=== PATIENT | female | born 1955 | race Caucasian/White ===

== ENCOUNTER → 2018-06-17 | Outpatient (CLI) | payer BC, OTHER ==
[~2018-06-17] MED LIST: ASPI325; DEXA4; DILANTIN; FURO40; FURO80; GLIM2; GLIM4; HYDACE5 PO; LEVE500; LEVSOD175; LEVSOD200; MAGOXI400; METF500; METF850; PHENA200 PO; PHENO60; PHENY100ER; POTCHL20ER; ROSU10TA; SULTRIDS PO; WARF5; YOHI5.4; [UNRECOGNIZED DRUG - REMARK]
[2018-06-17 16:02] LABS: Creatinine, Urine Random 80.3 mg/dL (27.00-270.00); Protein, Urine Random 22.3 mg/dL (0.0-11.9)
== END ==
LOC: LAB 14:33 → LAB SHORT 14:33
PROVIDERS: Internal Medicine
DX: N19 Unspecified kidney failure (principal)
CPT/HCPCS: 82570; 84156

== ENCOUNTER → 2020-05-03 | Outpatient (CLI) | payer BC, OTHER ==
[2020-05-03 20:00] LABS: Free Thyroxine 1.42 ng/dL (0.70-1.60)
[2020-05-03 20:02] LABS: Thyroid Stimulating Hormone 0.057 uIU/mL (0.360-4.800)
== END | disposition home or self-care (01) ==
LOC: LAB 17:00
PROVIDERS: Hospitalist
DX: E03.9 Hypothyroidism, unspecified (principal)
CPT/HCPCS: 84439; 84443

== ENCOUNTER → 2021-08-02 | Outpatient (CLI) | payer BC, MEDICARE, OTHER | END | disposition home or self-care (01) | LOC: LAB SHORT 12:09 | DX: D04.62 Carcinoma in situ of skin of left upper limb, including shoulder (principal) | CPT/HCPCS: 88305 ==

== ENCOUNTER 2023-09-21 02:57 | Inpatient (IN) | payer BC, MEDICARE, OTHER ==
[~2023-09-21] VITALS: Ht 172.7 cm; Wt 115.1 kg
[2023-09-21 03:43] LABS: Hematocrit 39.7 % (33.0-51.0); Hemoglobin 13.1 g/dL (11.5-16.0); Mean Corpuscular HGB 30.3 pg (26.0-34.0); Mean Corpuscular Volume 92 fL (80-100); Mean Platelet Volume 11.3 fL (9.1-12.4); Platelet Count 90 K/mm3 (150-400); RDW Coefficient Variation 12.7 % (11.7-14.2); RDW Standard Deviation 42.9 fL (35.1-46.3); Red Blood Cell Count 4.32 M/mm3 (3.80-5.20); White Blood Cell Count 9.64 K/mm3 (4.00-11.30)
[2023-09-21] MEDS ORDERED: Lactated Ringer's 1,000 ML IV ONE ×2 (03:45→05:05)
[2023-09-21 04:13] LABS: Albumin, Blood 3.3 g/dL (3.4-5.0); Bilirubin, Total 4.3 mg/dL (0.1-1.0); Bun/Creatinine Ratio 21.7 (12.0-20.0); Calcium, Blood 9.2 mg/dL (8.5-10.1); Creatinine, Blood 0.97 mg/dL (0.40-1.00); Globulin, Blood 3.2 g/dL (2.2-4.0); Potassium, Blood 4.8 mmol/L (3.5-5.5); Total Protein, Blood 6.5 g/dL (6.4-8.2)
[2023-09-21 04:24] LABS: BAND PERCENT MAN 27 % (0-8); BASOPHILS PERCENT MAN 0 % (0-2); EOSINOPHILS PERCENT MAN 0 % (0-6); LYMPHOCYTES ABSOLUTE MAN 0.57 K/mm3 (0.84-5.20); LYMPHOCYTES PERCENT MAN 6 % (21-46); MONOCYTES PERCENT MAN 0 % (4-13); NEUTROPHILS ABSOLUTE MAN 9.06 K/mm3 (1.96-9.15); SEG NEUTROPHILS PERCENT MAN 67 % (41-73); TOTAL CELLS COUNTED 100
[2023-09-21] MEDS ORDERED: CefTRIAXone Sodium 1,000 MG in NS 100 ML IV ONE (05:00)
[2023-09-21] MEDS ORDERED: Ondansetron HCl 2 MG / ML 2ML Vial IV PRN (06:25)
[2023-09-21] MEDS ORDERED: NS 1,000 ML IV SCH (06:25)
[2023-09-21] MEDS ORDERED: FentaNYL Citrate 50 MCG/ML 2 ML Injection IV PRN (06:25)
[2023-09-21] MEDS ORDERED: levETIRAcetam 1,500 MG in NS 100 ML IV SCH (06:55)
[2023-09-21] MEDS ORDERED: Pantoprazole Sodium 40 MG Injection IV SCH (07:10)
[2023-09-21 07:14] LABS: Source, Urine Clean Catch
[2023-09-21] MEDS ORDERED: Insulin Human Lispro 100 Units/ML 3ML Syringe SC SCH (07:30)
[2023-09-21 07:31] LABS: Appearance, Urine Clear (Clear); Bilirubin, Urine Neg (Neg); Blood, Urine Neg (Neg); Color, Urine Yellow (P-Yellow); Glucose Qualitative, Urine 4+ (Neg); Ketones, Urine 2+ (Neg); Leukocyte Esterase, Urine Neg (Neg); Nitrite, Urine Neg (Neg); Protein, Urine Neg (Neg); Specific Gravity, Urine 1.005 (1.003-1.022); Urobilinogen, Urine NORM (Normal)
[2023-09-21 08:13] LABS: Influenza A, PCR NEGATIVE (NEGATIVE); Influenza B, PCR NEGATIVE (NEGATIVE); Resp Syncytial Virus, PCR NEGATIVE (NEGATIVE); SARS-Cov-2 (COVID-19) PCR, MMC NEGATIVE (NEGATIVE)
[2023-09-21] MEDS ORDERED: Enoxaparin 40 MG/0.4 ML SYR SC SCH (09:00)
[2023-09-21] MEDS ORDERED: Azithromycin 500 MG in NS 250 ML IV SCH (09:00)
[2023-09-21 11:11] LABS: Base Excess Venous 2.2 mmol/L; Bicarbonate Venous 24.8 mmol/L (24.0-30.0); PCO2 Venous 54.3 mmHg (38-42); pH Blood Venous 7.33 (7.34-7.37)
[2023-09-21 11:34] LABS: International Normalized Ratio 1.05; Prothrombin Time Results 11.2 Sec (9.7-11.5)
[2023-09-21] MEDS ORDERED: Carvedilol12.5 MG PO (11:46)
[2023-09-21] MEDS ORDERED: GLIP10 PO (11:47)
[2023-09-21] MEDS ORDERED: GABA300 PO (11:47)
[2023-09-21] MEDS ORDERED: Isosorbide Mono30 MG PO (11:48)
[2023-09-21] MEDS ORDERED: HYDR10 PO (11:48)
[2023-09-21] MEDS ORDERED: LEVE500 PO (11:49)
[2023-09-21] MEDS ORDERED: JARDIANCE25 MG PO (11:49)
[2023-09-21] MEDS ORDERED: LIOT25 PO (11:50)
[2023-09-21] MEDS ORDERED: LEVSOD150 PO (11:50)
[2023-09-21] MEDS ORDERED: Crestor20 MG PO (11:51)
[2023-09-21] MEDS ORDERED: ONDA4ODT MM (11:51)
--- NOTE | 2023-09-21 11:53 | NUR ---
MED.REC RECORDS REQUESTED FROM [employer] D/T STATED MEDCIATIONS NOT MATCHING WITH FILL HISTORY. RECORDS RECEIVED VIA FAX. MEDICATIONS RECONCILATION COMPLETED OFF OF [employer] RECORD. CARE ONGOING.
[2023-09-21 13:01] VITALS: BP 102/59
[2023-09-21] MEDS ORDERED: MIRALAX17 GM PO (13:34)
[2023-09-21] MEDS ORDERED: ASCO500 PO (13:37)
[2023-09-21] MEDS ORDERED: ASPIR 8181 M1 PO (13:38)
[2023-09-21] MEDS ORDERED: CENTRUM WOMEN1 EAC2 PO (13:39)
--- NOTE | 2023-09-21 15:18 | NUR ---
ASSUMPTION OF CARE NOTE: RECEIVED REPORTS FROM KO NASH REGARDING PATIENT CONDITION. ASSUME CARE OF PATIENT AT 1518. PATIENT APPEARS TO BE COMFRORTABLY LAYING c HOB ELEVATED. PATIENT ON 2L O2 VIA NC. PATIENT DENIES CP/PRESSURE, SOB, N/V AND DIZZINESS. PATIENT ON TELE, SR HR IN THE HIGH 60'S BPM. PATIENT A/O, ANSWER TO QUESTIONS APPROPRIATELY AND ABLE TO MAKE NEEDS KNOWN. PATIENT SPOUSE AT BEDSIDE. CALL LIGHT IN REACH.
--- NOTE | 2023-09-21 15:25 | NUR ---
PT ARRIVED TO ROOM AT 1245 VIA CART WITH AT SIDE. PT SETTLED INTO ROOM AOX3 AND COOPERATIVE OF CARE. PT WAS ABLE TO DO A STAND PIVOT WITH GAITBELT TO BEDSIDE COMMODE WITH AID. PT CURRENTLY RESTING CALL LIGHT WITHIN REACH. REPORT WAS GIVEN TO MUKESH CONNELL TO TAKE OVER CARE AT 1520.
[2023-09-21 15:55] VITALS: BP 114/78
[2023-09-21 16:12] LABS: Base Excess Venous 2.8 mmol/L; Bicarbonate Venous 25.3 mmol/L (24.0-30.0); PCO2 Venous 58.5 mmHg (38-42); pH Blood Venous 7.31 (7.34-7.37)
[2023-09-21] MEDS ORDERED: Carvedilol 6.25 MG Tab PO SCH (17:00)
--- NOTE | 2023-09-21 17:29 | NUR ---
NOTE: PATIENT LEFT THE ROOM AT THIS TIME TO IMAGING.
--- NOTE | 2023-09-21 18:32 | NUR ---
ADDITONAL NOTE: PATIENT PLACED ON RA AT 1615 c SPO2 AT 98%. PATIENT DENIES SOB AND GENERALIZED PAIN. PATIENT ON HEART HEALTHY DIET c CBG ACHS. PATIENT BS 91 BEFORE DINNER, NO INSULIN COVERAGE. PATIENT HAS GOOD APPETITE, CONTINENCE OF BLADDER AND USES [facility] c 1 ASSIST/FWW. PATIENT HAD MRI DONE THIS PM, AWAITING FOR RESULT. PATIENT APPEARS TO BE RESTING COMFORTABLY IN BED, SPOUSE AT BEDSIDE c CALL LIGHT IN REACH. PIV TO R WRIST INFUSING NS AT 75 MLS/HR.
[2023-09-21 19:35] VITALS: BP 139/118
--- NOTE | 2023-09-21 20:54 | NUR ---
HOSPITALIST CONTACTED. PATIENT WEARS CPAP AT HOME AT BEDTIME AND HAS HER OWN CPAP WITH HER IN THE HOSPTIAL WITH NO ORDERS FOR CPAP. HOSPITALIST DERREK CONTACTED IN REGARDS TO STARTING PATIENTS CPAP. DERREK ORDERED FOR PATIENT TO HAVE HER HOME CPAP SET UP BY RT. HOSPITALIST ALSO NOTIFIED OF PATIENTS B/P: 139/118 WITH A MAP OF 127. DERREK ADVISED THIS RN TO TAKE A MANUAL BLOOD PRESSURE AND TO CONTINUE TO MONITOR.
[2023-09-21] MEDS ORDERED: Rosuvastatin Calcium 10 MG Tab PO SCH (21:00)
[2023-09-21 22:18] VITALS: BP 136/100
[2023-09-22 02:42] VITALS: BP 131/50
--- NOTE | 2023-09-22 02:47 | NUR ---
PATIENT NOT USING CALL LIGHT. PATIENT WILL SIT ON SIDE OF BED AND WAVE AT STAFF FOR ASSISTANCE. BED ALARM IS ON FOR SAFETY. PATIENT USING FACIAL EXPRESSIONS WHEN ASKED A QUESTION AT TIMES INSTEAD OF ANSWERING QUESTION.
--- NOTE | 2023-09-22 03:00 | NUR ---
HEMATOLOGY NOTIFIED THIS RN OF PATIENTS POSITIVE BLOOD CULTURE. [address] THAYER NOTIFIED OF PATIENTS POSITIVE BLOOD CULTURE. NO NEW ORDERS OR CHANGES AT THIS TIME.
--- NOTE | 2023-09-22 04:23 | NUR ---
SHIFT SUMMARY. PATIENT IS AOX3-4 WITH FORGETFULNESS. PATIENT NOT USING CALL LIGHT TONIGHT. PATIENT ADMITTED WITH ACUTE ENCEPHALOPATHY, 1P ASSIST WITH FWW AND GAITBELT TO THE BSC. PATIENT BED EXIT ENGAGED FOR SAFETY PATIENT IS IMPULSIVE. PATIENT IS A 1P ASSIST TO THE BSC WITH FWW AND GAIT BELT. PATIENT RESTED OFF AND ON T/O THE NIGHT, RESPIRATIONS ARE EQUAL AND UNLABORED ON RA SATTING >90%. BED IS LOCKED IN THE LOWEST POSITION WITH CALL LIGHT IN REACH. CARE IS ONGOING.
[2023-09-22 05:29] LABS: Hematocrit 37.5 % (33.0-51.0); Hemoglobin 12.1 g/dL (11.5-16.0); Mean Corpuscular HGB 30.5 pg (26.0-34.0); Mean Corpuscular HGB Conc 32.3 g/dL (31.5-36.5); Mean Corpuscular Volume 95 fL (80-100); Mean Platelet Volume 10.6 fL (9.1-12.4); Platelet Count 76 K/mm3 (150-400); RDW Coefficient Variation 12.9 % (11.7-14.2); RDW Standard Deviation 45.1 fL (35.1-46.3); Red Blood Cell Count 3.97 M/mm3 (3.80-5.20); White Blood Cell Count 4.92 K/mm3 (4.00-11.30)
[2023-09-22 05:51] LABS: BAND PERCENT MAN 3 % (0-8); BASOPHILS ABSOLUTE MAN 0.04 K/mm3 (0.00-0.23); BASOPHILS PERCENT MAN 1 % (0-2); EOSINOPHILS PERCENT MAN 0 % (0-6); LYMPHOCYTES ABSOLUTE MAN 0.29 K/mm3 (0.84-5.20); LYMPHOCYTES PERCENT MAN 6 % (21-46); MONOCYTES ABSOLUTE MAN 0.39 K/mm3 (0.16-1.47); MONOCYTES PERCENT MAN 8 % (4-13); NEUTROPHILS ABSOLUTE MAN 4.18 K/mm3 (1.96-9.15); SEG NEUTROPHILS PERCENT MAN 82 % (41-73); TOTAL CELLS COUNTED 100
[2023-09-22 05:52] LABS: Albumin, Blood 2.9 g/dL (3.4-5.0); Bilirubin, Total 3.4 mg/dL (0.1-1.0); Bun/Creatinine Ratio 25.8 (12.0-20.0); Calcium, Blood 8.6 mg/dL (8.5-10.1); Creatinine, Blood 0.85 mg/dL (0.40-1.00); Globulin, Blood 2.9 g/dL (2.2-4.0); Potassium, Blood 3.9 mmol/L (3.5-5.5); Total Protein, Blood 5.8 g/dL (6.4-8.2)
[2023-09-22] MEDS ORDERED: Levothyroxine Sodium 0.15 MG Tab PO SCH (06:00)
[2023-09-22 08:03] VITALS: BP 136/58
[2023-09-22] MEDS ORDERED: CefTRIAXone Sodium 1,000 MG in NS 100 ML IV SCH (09:00)
[2023-09-22] MEDS ORDERED: Gabapentin 300 MG Cap PO SCH (09:00)
[2023-09-22] MEDS ORDERED: Isosorbide Mononitrate 60 MG TABCR PO SCH (09:00)
[2023-09-22 09:35] LABS: Base Excess Venous 0.1 mmol/L; Bicarbonate Venous 24.4 mmol/L (24.0-30.0); PCO2 Venous 41 mmHg (38-42); pH Blood Venous 7.39 (7.34-7.37)
[2023-09-22 15:36] VITALS: BP 109/47
--- NOTE | 2023-09-22 16:04 | NUR ---
SHIFT SUMMARY: PATIENT RESTING ON/OFF IN BED T/O SHIFT, A/OX3, PLEASANT AND COOPERATIVE c CARE. PATIENT DENIES, CP/PRESSURE, N/V, DIZZINESS AND SOB. PATIENT ON TELE, SR HR IN THE HIGH 70'S BPM. PATIENT ON RA, RESP EVEN AND UNLABORED T/O SHIFT. PATIENT HAS NON PITTING EDEMA TO BLE'S AND TRACES OF EDEMA TO BUE'S. AFIBRILLE. PATIENT HAD ULTRASOUND TO ABDOMEN THIS PM c RESULT. PATIENT EXPRESSESS WOULD LIKE TO GO HOME, OTHERWISE, NO COMPLAINTS OR DENIES NEW CONCERNED, WHEN ASKED T/O SHIFT. VITAL SIGNS REVIEWED. BED ALARM ON FOR SAFETY. CALL LIGHT IN REACH.
[2023-09-22 17:42] VITALS: BP 117/48
[2023-09-22 19:50] VITALS: BP 112/41
[2023-09-23 03:22] VITALS: BP 130/60
[2023-09-23 04:43] LABS: BASOPHILS PERCENT AUTO 0 % (0-2); EOSINOPHILS ABSOLUTE AUTO 0.08 K/mm3 (0.00-0.68); EOSINOPHILS PERCENT AUTO 3 % (0-6); Hematocrit 38.1 % (33.0-51.0); Hemoglobin 12.1 g/dL (11.5-16.0); IMMATURE GRAN ABSOLUTE AUTO 0.01 K/mm3 (0.00-0.10); IMMATURE GRAN PERCENT AUTO 0 % (0-1); LYMPHOCYTES ABSOLUTE AUTO 0.35 K/mm3 (0.84-5.20); LYMPHOCYTES PERCENT AUTO 13 % (21-46); MONOCYTES ABSOLUTE AUTO 0.32 K/mm3 (0.16-1.47); MONOCYTES PERCENT AUTO 12 % (4-13); Mean Corpuscular HGB 30.3 pg (26.0-34.0); Mean Corpuscular HGB Conc 31.8 g/dL (31.5-36.5); Mean Corpuscular Volume 96 fL (80-100); Mean Platelet Volume 11.1 fL (9.1-12.4); NEUTROPHILS ABSOLUTE AUTO 1.99 K/mm3 (1.96-9.15); NEUTROPHILS PERCENT AUTO 72 % (41-73); Platelet Count 74 K/mm3 (150-400); RDW Coefficient Variation 12.9 % (11.7-14.2); RDW Standard Deviation 45.4 fL (35.1-46.3); Red Blood Cell Count 3.99 M/mm3 (3.80-5.20); White Blood Cell Count 2.75 K/mm3 (4.00-11.30)
--- NOTE | 2023-09-23 05:01 | NUR ---
Patient alert and oriented x3, tolerating room air, VSS, no complaints of pain. Patient fixated on discharging home as soon as possible. Patient impulsively attempting to get out of bed to use bedside commode multiple times this shift and incontinent episodes in bed, bed alarm active and effective at preventing falls. Patient voiding frequently. IV Keppra given per schedule, tolerated well. Care staff attempted to educate patient on use of Purewick external catheter with poor center receptionist.
[2023-09-23 05:10] LABS: Albumin, Blood 2.8 g/dL (3.4-5.0); Albumin/Globulin Ratio 0.9 (0.8-1.8); Bilirubin, Total 1.8 mg/dL (0.1-1.0); Bun/Creatinine Ratio 21.4 (12.0-20.0); Calcium, Blood 9.1 mg/dL (8.5-10.1); Creatinine, Blood 0.93 mg/dL (0.40-1.00); Globulin, Blood 3.2 g/dL (2.2-4.0); Potassium, Blood 3.9 mmol/L (3.5-5.5)
[2023-09-23 07:29] VITALS: BP 147/63
[2023-09-23 09:03] LABS: HEPATITIS A ANTIBODY, IGM Negative (Negative); HEPATITIS B CORE ANTIBODY, IGM Negative (Negative); HEPATITIS B SURFACE ANTIGEN Negative (Negative); HEPATITIS C AB CIA INTERP Negative (Negative); HEPATITIS C ANTIBODY CIA INDEX 0.07 IV
[2023-09-23 10:46] VITALS: BP 132/53
[2023-09-23] MEDS ORDERED: VISBIOME 112.51 EACH PO ×2 (13:47)
[2023-09-23] MEDS ORDERED: CIPR500 PO (13:48)
--- NOTE | 2023-09-23 15:17 | NUR ---
DISCHARGE SUMMARY PATIENT WITH NO ACUTE EVENTS DURING SHIFT. SHE IS UP [facility] ASSIST TO BEDSIDE COMMODE. SHE DENIES ANY PAIN OR ISSUES TODAY. PATIENT EDUCATION AND MEDICATION PACKET PRINTED AND REVIEWED WITH PATIENT AND . DISCHARGE PAPERWORK SIGNED. ALL QUESTIONS ANSWERED. PATIENT LEFT UNIT WITH MARY ANN MCRAE AT 1445 IN TRANSPORT CHAIR AND LEAVING VIA PRIVATE VEHICLE WITH SON HAZARDOUS MATERIAL SPECIALIST.
== END 2023-09-23 14:45 | disposition home or self-care (01) | DRG 194 ==
LOC: ER 02:57 → MEDS 02:58
PROVIDERS: Emergency Medicine; Family Medicine; ADMIT Internal Medicine
DX: J18.9 Pneumonia, unspecified organism (principal); E87.29 Other acidosis; G93.40 Encephalopathy, unspecified; K76.0 Fatty (change of) liver, not elsewhere classified; E78.5 Hyperlipidemia, unspecified; I10 Essential (primary) hypertension; E03.9 Hypothyroidism, unspecified; E66.9 Obesity, unspecified; G47.33 Obstructive sleep apnea (adult) (pediatric); K21.9 Gastro-esophageal reflux disease without esophagitis; C43.9 Malignant melanoma of skin, unspecified; R54 Age-related physical debility; R56.9 Unspecified convulsions; Z86.718 Personal history of other venous thrombosis and embolism; Z79.899 Other long term (current) drug therapy; Z79.84 Long term (current) use of oral hypoglycemic drugs; Z91.040 Latex allergy status; E86.0 Dehydration; D69.6 Thrombocytopenia, unspecified; E11.65 Type 2 diabetes mellitus with hyperglycemia; Z90.49 Acquired absence of other specified parts of digestive tract; Z68.30 Body mass index [BMI] 30.0-30.9, adult; Z98.890 Other specified postprocedural states; B96.89 Other specified bacterial agents as the cause of diseases classified elsewhere
CPT/HCPCS: 0241U; 36415; 70450; 70551; 74177; 76705; 80053; 80074; 81003; 82803; 82947; 83605; 83690; 83735; 83880; 84145; 85025; 85610; 87040; 87077; 87186; 93005; 93010; 93306; 94762; 96361; 96365-59; 96366; 96367; 96372; 96372-59; 96375; 96376; 99285-25; A9270; C9113; G0378; J0456; J0696; J1650; J1953; J7030; J7050; J7120; Q9967

== ENCOUNTER 2024-08-08 16:36 | Emergency (ER) | payer BC, MEDICARE, OTHER ==
[~2024-08-08] VITALS: Ht 167.6 cm; Wt 112.5 kg
[~2024-08-08 16:36] MED LIST changes: +ASCO500 PO; +ASPIR 8181 M1 PO; +CENTRUM WOMEN1 EAC2 PO; +CIPR500 PO; +Carvedilol12.5 MG PO; +Crestor20 MG PO; +GABA300 PO; +GLIP10 PO; +HYDR10 PO; +Isosorbide Mono30 MG PO; +JARDIANCE25 MG PO; +LEVE500 PO; +LEVSOD150 PO; +LIOT25 PO; +MIRALAX17 GM PO; +ONDA4ODT MM; +VISBIOME 112.51 EACH PO
[2024-08-08 17:12] LABS: BASOPHILS PERCENT AUTO 0 % (0-2); EOSINOPHILS PERCENT AUTO 0 % (0-6); Hematocrit 40.2 % (33.0-51.0); Hemoglobin 13.4 g/dL (11.5-16.0); IMMATURE GRAN ABSOLUTE AUTO 0.01 K/mm3 (0.00-0.10); IMMATURE GRAN PERCENT AUTO 0 % (0-1); LYMPHOCYTES PERCENT AUTO 10 % (21-46); MONOCYTES ABSOLUTE AUTO 0.54 K/mm3 (0.16-1.47); MONOCYTES PERCENT AUTO 13 % (4-13); Mean Corpuscular HGB 31.1 pg (26.0-34.0); Mean Corpuscular HGB Conc 33.3 g/dL (31.5-36.5); Mean Corpuscular Volume 93 fL (80-100); Mean Platelet Volume 10.7 fL (9.1-12.4); NEUTROPHILS ABSOLUTE AUTO 3.16 K/mm3 (1.96-9.15); NEUTROPHILS PERCENT AUTO 77 % (41-73); Platelet Count 73 K/mm3 (150-400); RDW Coefficient Variation 12.5 % (11.7-14.2); RDW Standard Deviation 43.4 fL (35.1-46.3); Red Blood Cell Count 4.31 M/mm3 (3.80-5.20); White Blood Cell Count 4.11 K/mm3 (4.00-11.30)
[2024-08-08 17:26] LABS: Albumin, Blood 3.4 g/dL (3.4-5.0); Bilirubin, Total 0.6 mg/dL (0.1-1.0); Bun/Creatinine Ratio 20.2 (12.0-20.0); Calcium, Blood 8.7 mg/dL (8.5-10.1); Creatinine, Blood 0.89 mg/dL (0.40-1.00); Globulin, Blood 3.3 g/dL (2.2-4.0); Potassium, Blood 4.6 mmol/L (3.5-5.5); Total Protein, Blood 6.7 g/dL (6.4-8.2)
[2024-08-08 18:33] LABS: Influenza B, PCR NEGATIVE (NEGATIVE); Resp Syncytial Virus, PCR NEGATIVE (NEGATIVE); SARS-Cov-2 (COVID-19) PCR, MMC NEGATIVE (NEGATIVE)
[2024-08-08 19:12] LABS: Influenza A, PCR POSITIVE (NEGATIVE)
[2024-08-08 19:24] VITALS: BP 136/84
== END 2024-08-08 19:42 | disposition other institution (70) ==
LOC: ER 16:36
PROVIDERS: Emergency Medicine
DX: J10.1 Influenza due to other identified influenza virus with other respiratory manifestations (principal); E78.5 Hyperlipidemia, unspecified; E11.9 Type 2 diabetes mellitus without complications
CPT/HCPCS: 0241U; 71045; 80053; 85025; 93005; 93010; 99284-25